=== PATIENT | female | born 2000 | race Two or more races ===

== ENCOUNTER → 2022-06-25 12:09 | Outpatient (RCR) | payer OTHER, SELFPAY ==
[2020-07-19 14:33] LABS: IDNOW Serial# 55D5AD1C
[2020-07-19 14:34] LABS: COVID-19 Test Negative (Negative)
== END | disposition home or self-care (01) ==
LOC: HO.EMPCOV 07-19 13:45
PROVIDERS: Visit Provider Internal Medicine
DX: Z20.828 Contact with and (suspected) exposure to other viral communicable diseases (principal)
CPT/HCPCS: 87635; C9803

== ENCOUNTER → 2022-06-25 13:05 | Outpatient (RCR) | payer OTHER, SELFPAY ==
[2020-07-26 14:35] LABS: COVID-19 Test Negative (Negative)
[2020-08-16 14:04] LABS: COVID-19 Test Negative (Negative)
[2020-08-21 11:27] LABS: COVID-19 Test Negative (Negative)
== END | disposition home or self-care (01) ==
LOC: HO.EMPCOV 07-26 13:57
PROVIDERS: Visit Provider Internal Medicine
DX: Z20.828 Contact with and (suspected) exposure to other viral communicable diseases (principal)
CPT/HCPCS: 87635; C9803; U0003